=== PATIENT | female | born 1945 | race Caucasian/White ===

== ENCOUNTER 2016-12-25 15:57 | Observation (INO) | payer OTHER, BC ==
[~2016-12-25] VITALS: Ht 177.8 cm; Wt 136.1 kg
[~2016-12-25 15:57] MED LIST: ASPIR-TRIN325 M1; GLIMEPIRIDE2 MG; HYDROCHLOROTH12.5 M2; HYDROCHLOROTHIA25 MG PO; LANTUS 10100 UNITS/ SC; LIPITOR10 MG; LOTREL 10/41 CAPSULE; METFORMIN HCL500 MG PO; METOPROLOL TART50 MG PO; NOVOLOG 10100 UNITS/ SC; VITAMIN D1000 UNIT; XARELTO20 MG PO
[2016-12-25 16:54] LABS: HEMATOCRIT 46.1 % (36.0-46.0); MCH 28.2 PG (29.0-34.0); MCHC 32.8 G/DL (30.0-36.0); MCV 86.2 FL (83-99); MEAN PLAT.VOLUME 10.4 uM^3 (9.5-12.4); PLATELET COUNT 239 K/uL (156-360); RBC DIS.WIDTH-CV 13.2 % (11.8-14.6); RBC DIS.WIDTH-SD 41.1 % (39-53); RED BLOOD COUNT 5.35 M/uL (3.80-5.20); WHITE BLOOD COUNT 13.9 K/uL (4.1-10.2)
[2016-12-25 17:03] LABS: CHLORIDE 106 mEq/L (99-109); POTASSIUM 5.2 mEq/L (3.7-5.4); SODIUM 143 mEq/L (136-147)
[2016-12-25 17:04] LABS: MAGNESIUM 2.3 mg/dL (1.3-2.7)
[2016-12-25 17:05] LABS: GLUCOSE 214 mg/dL (70-99)
[2016-12-25 17:07] LABS: ANION GAP 13 MEQ/L (2-14); TOTAL BILIRUBIN 0.4 mg/dL (0.0-1.0)
[2016-12-25 17:09] LABS: ALKALINE PHOSPHATASE 123 IU/L (3-129); GFR ESTIMATE (CALCULATED) > 59 mL/min/
[2016-12-25 17:10] LABS: UREA NITROGEN (BUN) 18 mg/dL (9-23)
[2016-12-25 17:15] LABS: TROP-I INTERPRETATION NEGATIVE; TROPONIN-I < 0.01 ng/mL (0.0-0.30)
[2016-12-25] MEDS ORDERED: LOTREL 10/41 CAPSULE PO (19:07)
[2016-12-25] MEDS ORDERED: LASIX40 MG PO (19:08)
[2016-12-25] MEDS ORDERED: METOPROLOL TART50 MG PO (19:08)
[2016-12-25] MEDS ORDERED: ASPIRIN325 MG PO (19:09)
[2016-12-25] MEDS ORDERED: LIPITOR10 MG PO (19:09)
[2016-12-25] MEDS ORDERED: VITAMIN D34000 UNIT PO (19:09)
[2016-12-25] MEDS ORDERED: PRESERVISION T1 EACH PO (19:11)
[2016-12-25] MEDS ORDERED: TRESIBA FL200 UNIT/1 SC (19:14)
[2016-12-25] MEDS ORDERED: NOVOLOG PE100 UNITS/ SC (19:16)
[2016-12-25] MEDS ORDERED: METANX CAPSULE1 EACH PO (19:17)
[2016-12-25 19:33] LABS: TROP-I INTERPRETATION NEGATIVE; TROPONIN-I 0.01 ng/mL (0.0-0.30)
[2016-12-25 19:48] LABS: ADD MIUA? YES; BILIRUBIN NEGATIVE; BLOOD NEGATIVE; COLOR YELLOW ((YELLOW)); GLUCOSE (STRIP) NEGATIVE; KETONES NEGATIVE; LEUKOCYTES NEGATIVE; NITRITE NEGATIVE; PROTEIN (STRIP) NEGATIVE; SPECIFIC GRAVITY 1.018 (1.000-1.030); UROBILINOGEN 0.2 MG/DL (0.2-1.0)
[2016-12-25 19:51] LABS: BACTERIA RARE /HPF; EPITHELIAL CELLS RARE /HPF; MUCUS TRACE /LPF; RED BLOOD CELLS 0-5 /HPF (0-5); UCUL ADDED? NO; WHITE BLOOD CELLS 0-5 /HPF (0-5)
[2016-12-25 20:51] VITALS: BP 139/66
[2016-12-25 21:10] LABS: POINT-OF-CARE METER ID UU13113831
[2016-12-25 23:23] LABS: TROP-I INTERPRETATION NEGATIVE; TROPONIN-I 0.02 ng/mL (0.0-0.30)
[2016-12-25 23:36] VITALS: BP 122/58
[2016-12-26 04:40] VITALS: BP 164/70
[2016-12-26 05:39] LABS: TROP-I INTERPRETATION NEGATIVE; TROPONIN-I 0.01 ng/mL (0.0-0.30)
[2016-12-26 06:44] VITALS: BP 166/76
[2016-12-26 06:50] LABS: HDL CHOLESTEROL 39 MG/DL (Desirable>=50); LDL CHOLESTEROL 52 mg/dL (Desirable<100); NON-HDL CHOLESTEROL 82 mg/dL (Desirable<160); TOTAL CHOLESTEROL 121 mg/dL (Desirable<200); TRIGLYCERIDES 150 MG/DL (Normal: <150)
[2016-12-26 09:13] LABS: POINT-OF-CARE METER ID UU13113831
[2016-12-26 11:02] VITALS: BP 158/85
[2016-12-26 12:01] LABS: POINT-OF-CARE METER ID UU13113831
[2016-12-26 14:21] LABS: Estimated Average Glucose 166 mg/dL (70-123); HEMOGLOBIN A1c (GLYCOHEMOGLOB) 7.4 % HGB (Below 5.7)
[2016-12-26 15:45] VITALS: BP 154/78
[2016-12-26 16:51] LABS: POINT-OF-CARE METER ID UU13113831
[2016-12-26] MEDS ORDERED: LISINOPRIL40 MG PO (17:46)
[2016-12-26 19:00] VITALS: BP 131/62
[2016-12-26 22:17] LABS: POINT-OF-CARE METER ID UU13113831
[2016-12-27 01:12] VITALS: BP 165/70
[2016-12-27 04:30] VITALS: BP 123/58
[2016-12-27 07:19] VITALS: BP 151/63
[2016-12-27 07:25] LABS: BASOPHIL COUNT 0.1 K/uL (0-0.1); EOSINOPHIL (%) 1.8 % (0-5); EOSINOPHIL COUNT 0.3 K/uL (0-0.3); HEMATOCRIT 45.8 % (36.0-46.0); IMMATURE GRANULOCYTE (%) 0.4 % (0.0-0.7); IMMATURE GRANULOCYTE COUNT 0.1 K/uL; INSTRUMENT ABS NEUTROPHIL CT 8.8 K/uL; MCH 28.8 PG (29.0-34.0); MCHC 33.2 G/DL (30.0-36.0); MCV 86.9 FL (83-99); MEAN PLAT.VOLUME 11.4 uM^3 (9.5-12.4); MONOCYTE (%) 9.8 % (3-12); MONOCYTE COUNT 1.3 K/uL (0-0.8); NEUTROPHIL (%) 65.3 % (45-76); NEUTROPHIL COUNT 8.8 K/uL (1.8-6.4); PLATELET COUNT 286 K/uL (156-360); RBC DIS.WIDTH-CV 13.2 % (11.8-14.6); RED BLOOD COUNT 5.27 M/uL (3.80-5.20); WHITE BLOOD COUNT 13.5 K/uL (4.1-10.2)
[2016-12-27 07:40] LABS: POINT-OF-CARE METER ID UU14162513
[2016-12-27 07:44] LABS: ANION GAP 14 MEQ/L (2-14); CHLORIDE 104 MEQ/L (99-109); GFR ESTIMATE (CALCULATED) > 59 mL/min/; GLUCOSE 232 mg/dL (70-99); POTASSIUM 4.2 MEQ/L (3.7-5.4); SAMPLE HEMOLYSIS CHECK 0; SAMPLE ICTERIC CHECK 0; SAMPLE LIPEMIA CHECK 0; SODIUM 141 MEQ/L (136-147); UREA NITROGEN (BUN) 14 mg/dL (9-23)
== END 2016-12-27 08:08 | disposition short-term general hospital (02) ==
LOC: EME 15:57 → 5WEST 19:12 → EDOF 19:12 → 5WEST 20:37
PROVIDERS: Internal Medicine; Physician Assistant; Physician Assistant Medical; Student in an Organized Health Care Education/Training Program
DX: I35.0 Nonrheumatic aortic (valve) stenosis (principal); I44.1 Atrioventricular block, second degree; R00.1 Bradycardia, unspecified; I48.91 Unspecified atrial fibrillation; I48.92 Unspecified atrial flutter; G47.33 Obstructive sleep apnea (adult) (pediatric); E11.65 Type 2 diabetes mellitus with hyperglycemia; Z79.4 Long term (current) use of insulin; M19.90 Unspecified osteoarthritis, unspecified site; E66.01 Morbid (severe) obesity due to excess calories; Z68.41 Body mass index [BMI] 40.0-44.9, adult
CPT/HCPCS: 71020; 80048; 80053; 80061; 81003; 82948; 83036; 83735; 84443; 84484; 85025; 85027; 93005; 94660; 94799; 99281; 99285; G0378; J1644; J1650; J1815; J7030

== ENCOUNTER 2017-08-12 17:11 | Emergency (ER) | payer OTHER, BC ==
[~2017-08-12] VITALS: Ht 177.8 cm; Wt 139.0 kg
[~2017-08-12 17:11] MED LIST changes: +ASPIRIN325 MG PO; +LASIX40 MG PO; +LIPITOR10 MG PO; +LISINOPRIL40 MG PO; +LOTREL 10/41 CAPSULE PO; +METANX CAPSULE1 EACH PO; +NOVOLOG PE100 UNITS/ SC; +PRESERVISION T1 EACH PO; +TRESIBA FL200 UNIT/1 SC; +VITAMIN D34000 UNIT PO
[2017-08-12 19:37] LABS: HEMATOCRIT 42.1 % (36.0-46.0); HEMOGLOBIN 14.4 G/DL (11.9-15.5); MCH 29.4 PG (29.0-34.0); MCHC 34.2 G/DL (30.0-36.0); MCV 86.1 FL (83-99); PLATELET COUNT 215 K/uL (156-360); RBC DIS.WIDTH-CV 13.6 % (11.8-14.6); RBC DIS.WIDTH-SD 42.2 % (39-53); RED BLOOD COUNT 4.89 M/uL (3.80-5.20); WHITE BLOOD COUNT 12.5 K/uL (4.1-10.2)
[2017-08-12 19:48] LABS: ALBUMIN 3.6 g/dL (3.2-4.8); CHLORIDE 103 mEq/L (99-109); POTASSIUM 3.9 mEq/L (3.7-5.4); SODIUM 139 mEq/L (136-147)
[2017-08-12 19:50] LABS: GLUCOSE 238 mg/dL (70-99)
[2017-08-12 19:52] LABS: TOTAL BILIRUBIN 0.3 mg/dL (0.0-1.0)
[2017-08-12 19:54] LABS: ALKALINE PHOSPHATASE 147 IU/L (3-129); CREATININE 0.7 mg/dL (0.6-1.3); GFR ESTIMATE (CALCULATED) > 59 mL/min/
[2017-08-12 19:55] LABS: UREA NITROGEN (BUN) 20 mg/dL (9-23)
[2017-08-12 19:56] LABS: AST (GOT) 56 IU/L (2-34)
[2017-08-12 19:57] LABS: ALT (GPT) 50 IU/L (3-49)
[2017-08-12 20:00] LABS: TROP-I INTERPRETATION NEGATIVE; TROPONIN-I < 0.01 ng/mL (0.0-0.30)
[2017-08-12 22:57] LABS: TROP-I INTERPRETATION NEGATIVE; TROPONIN-I < 0.01 ng/mL (0.0-0.30)
[2017-08-12 23:13] VITALS: BP 151/52
== END 2017-08-12 23:28 | disposition home or self-care (01) ==
LOC: EME 17:11
PROVIDERS: Nurse Practitioner Family
DX: R00.2 Palpitations (principal); E11.65 Type 2 diabetes mellitus with hyperglycemia; I50.9 Heart failure, unspecified; I11.0 Hypertensive heart disease with heart failure; I48.92 Unspecified atrial flutter; I45.4 Nonspecific intraventricular block; Z79.4 Long term (current) use of insulin; Z95.0 Presence of cardiac pacemaker; Z95.2 Presence of prosthetic heart valve; Z85.9 Personal history of malignant neoplasm, unspecified; Z90.49 Acquired absence of other specified parts of digestive tract; Z88.1 Allergy status to other antibiotic agents; Z88.0 Allergy status to penicillin
CPT/HCPCS: 71020; 80053; 81003; 83735; 84484; 85027; 93005; 99281; 99285